=== PATIENT | female | born 1985 | race African-American/Black ===

== ENCOUNTER 2023-01-14 07:48 | Outpatient (AMB) | payer OTHER, SELFPAY ==
--- NOTE | 2023-01-14 07:53 | MHC.OFFVIS ---
Intake Vital Signs 01/14/23 07:55 Height 5 ft 5 in Weight 229 lb BMI 38.1 BP 122/76 Intake Visit Reasons: Tubal Consult/DO NOT RS Office Service Coordinator Required: No Information Interpreted: non-clinical & clinical Accompanied by: Self / Same As Patient Allergies No Known Allergies Allergy (Verified 01/14/23 07:56) Is last menstrual period known: No (depoprovera) HPI HPI Comments History of Present Illness Details The patient is presenting discussed different options of control including tubal sterilization, she complete her family . PFSH Surgical History H/O breast biopsy Hx of dilation and curettage Family History Mother HTN (hypertension) Social History Household Members: Children Housing: House Alcohol intake: current Alcohol intake frequency: holidays/special occasions only Patient Tobacco Use Status: Current everyday Tobacco user Cigarettes Per Day: 6 Years Smoked: 17 Sexually active: Yes Sexual orientation: Straight/Heterosexual Gender identity: Female Review of Systems Const All systems reviewed & are unremarkable except as noted in HPI and below Reports as per HPI and Reports no additional complaints GI Reports no additional complaints Reports no additional complaints Physical Exam Vital Signs: Last Vital Signs BP 122/76 01/14/23 07:55 BMI result Body Mass Index 38.1 Assessment & Plan Assessment & Plan (1) Family planning: Code(s): Z30.09 - Encounter for other general counseling and advice on contraception Plan: Discussed with the patient the different options of control including control pills/Nuvaring, DMPA, different types of IUD ?s ( cu vs progesterone) , sterilization and vasectomy. All the pros, cons, risks and benefits of each were discussed with the patient. The patient decided to think about it and get back to us . All questions answered, the patient verbalized understanding Coding Level of Care Code New Pt Level 3 (51320) Diagnoses Family planning Z30.09
[2023-01-14 07:55] VITALS: BP 122/76; BMI 38.1
== END 2023-01-14 09:24 | disposition home or self-care (01) ==
LOC: HO.HWS 07:48
PROVIDERS: PCP Internal Medicine; Visit Provider Obstetrics & Gynecology
DX: Z30.09 Encounter for other general counseling and advice on contraception (principal)
CPT/HCPCS: 99203

== ENCOUNTER → 2023-01-14 07:48 | Outpatient (BNVA) | payer OTHER, SELFPAY | PROVIDERS: PCP Internal Medicine; Visit Provider Obstetrics & Gynecology | DX: Z30.09 Encounter for other general counseling and advice on contraception (principal) | CPT/HCPCS: 99202 ==